=== PATIENT | female | born 1980 | race Two or more races ===

== ENCOUNTER 2021-12-07 10:56 | Emergency (ER) | payer MEDICAID, OTHER ==
[~2021-12-07] VITALS: Ht 157.5 cm; Wt 54.4 kg
[2021-12-07 11:02] VITALS: BP 113/85
[2021-12-07] MEDS ORDERED: CEPH500C PO (12:11)
[2021-12-07] MEDS ORDERED: METH4PAK PO (12:11)
[2021-12-07] MEDS ORDERED: NAPR500T31 PO (12:11)
[2021-12-07] MEDS ORDERED: ACETAMINOPHEN 325 MG TAB PO ONE (12:15)
== END 2021-12-07 12:24 | disposition home or self-care (01) ==
LOC: ER 10:56
DX: L23.9 Allergic contact dermatitis, unspecified cause (principal); Z79.899 Other long term (current) drug therapy

== ENCOUNTER 2022-02-22 09:47 | Emergency (ER) | payer MEDICAID ==
[~2022-02-22] VITALS: Ht 157.5 cm; Wt 54.4 kg
[~2022-02-22 09:47] MED LIST: CEPH500C PO; METH4PAK PO; NAPR500T31 PO
[2022-02-22 11:37] VITALS: BP 106/66
[2022-02-22] MEDS ORDERED: TRIA0.02 TOP (11:59)
[2022-02-22] MEDS ORDERED: NAPR500T31 PO (11:59)
[2022-02-22] MEDS ORDERED: DOXY-338 PO (11:59)
== END 2022-02-22 12:16 | disposition home or self-care (01) ==
LOC: ER 09:47
DX: S70.362A Insect bite (nonvenomous), left thigh, initial encounter (principal); W57.XXXA Bitten or stung by nonvenomous insect and other nonvenomous arthropods, initial encounter; Y93.89 Activity, other specified; Y92.89 Other specified places as the place of occurrence of the external cause; Y99.8 Other external cause status